=== PATIENT | female | born 1940 | race Caucasian/White ===

== ENCOUNTER → 2021-05-08 | Outpatient (CLI) | payer MEDICARE, BC ==
--- NOTE | 2021-05-08 13:18 | RAD ---
EXAM: 1. Frontal pelvis with bilateral hips. 2. Sacrum/coccyx 3 views. 3. Bilateral knees 3 views. HISTORY: Bilateral hip, sacrococcygeal and knee pain. COMPARISON: None. FINDINGS: No fractures are appreciated within the pelvis or at either hip. The joint spaces of both h ips are maintained. There is mildly decreased femoral head/neck offset anteriorly bilaterally. There are moderate degenerative changes at the pubic symphysis. No fractures are appreciated within the sacrum/coccyx. The sacroiliac joints are unremarkable. Post s urgical changes are noted along both adnexa. No fractures are appreciated at the right knee. Joint spaces and alignment are maintained. There is n o joint effusion. A small soft tissue calcification overlying the tibial tubercle may represent a phl ebolith. No fractures are appreciated at the left knee. Joint spaces and alignment are maintained. A small ses sile osteochondroma is suspected along the posterior aspect of the proximal fibular metaphysis measur ing 2.1 x 0.7 x 7 mm. There is no joint effusion. IMPRESSION: 1. Minimal degenerative changes for patient age as detailed above. 2. 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 Electronically signed by: Saloni Ricardo MD (05/08/2021 1:16 PM) [id number]
== END ==
LOC: RAD 12:19
PROVIDERS: ATTEND Physician Assistant Medical
DX: M47.898 Other spondylosis, sacral and sacrococcygeal region (principal); M19.09 Primary osteoarthritis, other specified site; D16.22 Benign neoplasm of long bones of left lower limb; M25.551 Pain in right hip; M25.552 Pain in left hip
CPT/HCPCS: 72220; 73521; 73562

== ENCOUNTER → 2021-09-18 | Outpatient (CLI) | payer MEDICARE, BC ==
--- NOTE | 2021-09-29 08:09 | RAD ---
INDICATION : Routine Screening. COMPARISON: No comparison available TECHNIQUE: Standard mammogram screening views of the bilateral breasts were obtained .CAD was utilize d. FINDINGS: The breasts are scattered density. Within the right breast on the MLO view approximately 3.5 cm post erior to the nipple there is a couple of partially obscured masslike structures identified. IMPRESSION: BI-RADS Category 0: Incomplete. Further imaging evaluation is needed. On the right MLO view there is a couple of asymmetry is identified posterior to the nipple. Could be secondary to overlap of glandul ar tissue but recommend that the patient return for diagnostic mammogram and ultrasound to further as sess and ensure that this is not secondary to a small mass in the area. The patient was placed into the recall system with a suggested recall date for follow up imaging. Mammography is the most sensitive method for finding small breast cancers, but it does not detect the m all and is not a substitute for careful clinical examination. A negative mammogram does not negate a clinically suspicious finding and should not result in delay in biopsying a clinically suspicious abnormality. Electronically signed by: Unruly Otto MD (09/29/2021 8:06 AM) [id number]
== END ==
LOC: MAMMO 11:12
PROVIDERS: ATTEND Physician Assistant Medical
DX: Z12.31 Encounter for screening mammogram for malignant neoplasm of breast (principal)
CPT/HCPCS: 77067